=== PATIENT | male | born 1985 | race Two or more races ===

== ENCOUNTER 2023-11-08 13:49 | Emergency (ER) | payer OTHER ==
[~2023-11-08] VITALS: Ht 188 cm; Wt 117.9 kg
[2023-11-08] MEDS ORDERED: KETOROLAC TROMETHAMINE 60 MG VIAL IM STA (15:20)
[2023-11-08] MEDS ORDERED: KETOROLAC TROMETHAMINE 60 MG VIAL IM ONE (15:24)
== END 2023-11-08 15:39 | disposition home or self-care (01) ==
LOC: ER 13:50
DX: M94.0 Chondrocostal junction syndrome [Tietze] (principal); R07.89 Other chest pain